=== PATIENT | male | born 1980 | race Caucasian/White ===

== ENCOUNTER 2018-02-15 01:39 | Emergency (ER) | payer MEDICAID ==
[~2018-02-15] VITALS: Ht 180.3 cm; Wt 68.2 kg
[~2018-02-15 01:39] MED LIST: AMOXICILLIN 50500 MG PO; AMOXICILLIN875 MG PO; ATIVAN 1MG T1 MG/TAB PO; CLEOCIN HC150 MG/CAP PO; DOXYCYCLINE 10100 MG PO; LAMICTAL 25MG T25 MG PO; LAMICTAL200 MG PO; LORTAB 5/500 501 TAB; LORTAB 5/500 501 TAB PO; NAPROSYN500 MG PO; NEURONTIN100 MG/CAP PO; NO HOME MEDICATIONS; NORCO 325 MG-51 TAB PO; NORCO 325 MG-7.1 TAB PO; PERCOCET 325 MG1 TA2 PO; PHENERGAN 25 TA25 MG PO; PREDNISONE20 MG PO; PROAIR HFA0.09 MG/AC IH; ZITHROMAX Z PA250 MG PO; [UNRECOGNIZED DRUG - CODE] TP
[2018-02-15 01:43] VITALS: BP 137/72; PULSE 95; TEMP 98.7
[2018-02-15] MEDS ORDERED: FOLIC ACID 11 MG/TA1 PO (02:00)
[2018-02-15] MEDS ORDERED: IBU800 M1 PO (02:01)
[2018-02-15] MEDS ORDERED: NEURONTIN300 MG/CAP PO (02:01)
[2018-02-15] MEDS ORDERED: ROBAXIN 50500 MG/TAB PO (02:02)
[2018-02-15] MEDS ORDERED: LIDOCAINE HCL100 M1 MM (02:02)
[2018-02-15] MEDS ORDERED: OTREXUP15 MG/0.4 SQ (02:03)
[2018-02-15] MEDS ORDERED: TRENTAL 400MG400 MG PO (02:04)
[2018-02-15] MEDS ORDERED: PREDNISONE 5MG5 MG PO (02:05)
[2018-02-15] MEDS ORDERED: VITAMIN D 50,1.25 MG PO (02:05)
[2018-02-15 02:18] LABS: BASO % 0.3 % (0.0-2.0); EOS # 0.2 (0.0-0.7); EOS % 3.1 % (0-4.0); GRAN # 3.8 (1.4-6.5); GRAN % 56.7 % (42.2-75.2); HEMATOCRIT 44.4 % (42.0-52.0); HEMOGLOBIN 15.1 g/dl (13.5-18.0); LYMPH # 2.2 (1.2-3.4); LYMPH % 32.5 % (20.0-51.0); MEAN CELL VOLUME 84 fl (80.0-100.0); MEAN CORPUSCULAR HEMOGLOBIN 29 pg (27.0-31.0); MEAN CORPUSCULAR HGB CONC 34 g/dl (33.0-37.0); MEAN PLATELET VOLUME 8.5 fl (7.4-10.4); MONO # 0.5 (0.1-0.6); MONO % 7.1 % (1.7-9.3); PLATELET COUNT 198 K/mm3 (130-400); RED BLOOD COUNT 5.28 M/mm3 (4.20-5.60); REDCELL DISTRIBUTION WIDTH-CV 12.1 % (11.5-14.5)
[2018-02-15 02:31] LABS: ALANINE AMINOTRANSFERASE 27 U/L (21-72); ALBUMIN 4.1 gm/dL (3.5-5.0); ALKALINE PHOSPHATASE 64 U/L (50-136); ANION GAP 10 mmol/L (7-16); AST,SGOT 18 U/L (15-37); BILIRUBIN,TOTAL 0.3 mg/dL (0.0-1.0); BLOOD UREA NITROGEN 16 mg/dL (9-20); CALCIUM 9.1 mg/dL (8.4-10.2); CARBON DIOXIDE 26 mmol/L (22-30); CHLORIDE 104 mmol/L (98-107); CREATININE, serum 0.86 mg/dL (0.66-1.25); GLUCOSE 94 mg/dL (74-106); SODIUM 140 mmol/L (137-145)
[2018-02-15 02:32] LABS: C-REACTIVE PROTEIN < 0.5 mg/dL (0.0-0.9)
[2018-02-15 02:43] LABS: ERYTHROCYTE SEDIMENTATION RATE 1 mm/hr (0-15)
== END 2018-02-15 02:51 | disposition left against medical advice (07) ==
LOC: COL.ER 01:39
PROVIDERS: Physician Assistant
DX: M79.642 Pain in left hand (principal); M79.641 Pain in right hand; M79.672 Pain in left foot; M79.671 Pain in right foot; F17.210 Nicotine dependence, cigarettes, uncomplicated

== ENCOUNTER 2018-03-14 00:10 | Emergency (ER) | payer MEDICAID ==
[~2018-03-14] VITALS: Ht 175.3 cm; Wt 68.2 kg
[~2018-03-14 00:10] MED LIST changes: +FOLIC ACID 11 MG/TA1 PO; +IBU800 M1 PO; +LIDOCAINE HCL100 M1 MM; +NEURONTIN300 MG/CAP PO; +OTREXUP15 MG/0.4 SQ; +PREDNISONE 5MG5 MG PO; +ROBAXIN 50500 MG/TAB PO; +TRENTAL 400MG400 MG PO; +VITAMIN D 50,1.25 MG PO
[2018-03-14 00:15] VITALS: BP 132/85; PULSE 90; TEMP 98.9
[2018-03-14 00:52] LABS: BASO % 0.3 % (0.0-2.0); EOS # 0.3 (0.0-0.7); EOS % 3.9 % (0-4.0); GRAN # 4.5 (1.4-6.5); GRAN % 56.7 % (42.2-75.2); HEMATOCRIT 47.2 % (42.0-52.0); HEMOGLOBIN 15.9 g/dl (13.5-18.0); LYMPH # 2.6 (1.2-3.4); MEAN CELL VOLUME 85 fl (80.0-100.0); MEAN CORPUSCULAR HEMOGLOBIN 29 pg (27.0-31.0); MEAN CORPUSCULAR HGB CONC 34 g/dl (33.0-37.0); MEAN PLATELET VOLUME 8.9 fl (7.4-10.4); MONO # 0.4 (0.1-0.6); MONO % 5.6 % (1.7-9.3); PLATELET COUNT 196 K/mm3 (130-400); RED BLOOD COUNT 5.55 M/mm3 (4.20-5.60); REDCELL DISTRIBUTION WIDTH-CV 12.9 % (11.5-14.5)
[2018-03-14 01:07] LABS: ALANINE AMINOTRANSFERASE 23 U/L (21-72); ALBUMIN 4.4 gm/dL (3.5-5.0); ALKALINE PHOSPHATASE 63 U/L (50-136); ANION GAP 13 mmol/L (7-16); AST,SGOT 14 U/L (15-37); BILIRUBIN,TOTAL 0.3 mg/dL (0.0-1.0); BLOOD UREA NITROGEN 15 mg/dL (9-20); C-REACTIVE PROTEIN < 0.5 mg/dL (0.0-0.9); CALCIUM 9.1 mg/dL (8.4-10.2); CARBON DIOXIDE 21 mmol/L (22-30); CHLORIDE 104 mmol/L (98-107); CREATININE, serum 0.83 mg/dL (0.66-1.25); GLUCOSE 103 mg/dL (74-106); MAGNESIUM 2.1 mg/dL (1.6-2.3); PHOSPHOROUS 4.1 mg/dL (2.5-4.5); POTASSIUM 3.7 mmol/L (3.4-5.0); SODIUM 138 mmol/L (137-145); TOTAL PROTEIN 7.3 gm/dL (6.4-8.2)
[2018-03-14 01:15] LABS: ERYTHROCYTE SEDIMENTATION RATE 1 mm/hr (0-15)
== END 2018-03-14 01:33 | disposition home or self-care (01) ==
LOC: COL.ER 00:10
PROVIDERS: Emergency Medicine
DX: M35.2 Behcet's disease (principal); F17.210 Nicotine dependence, cigarettes, uncomplicated; Z98.890 Other specified postprocedural states
CPT/HCPCS: J7512

== ENCOUNTER 2018-03-26 01:30 | Emergency (ER) | payer MEDICAID ==
[~2018-03-26] VITALS: Ht 182.9 cm; Wt 69.5 kg
[2018-03-26 02:35] VITALS: BP 139/79; PULSE 88; TEMP 98.8
== END 2018-03-26 02:20 | disposition home or self-care (01) ==
LOC: COL.ER 01:30
DX: G89.29 Other chronic pain (principal); M79.671 Pain in right foot; M79.672 Pain in left foot; M79.642 Pain in left hand; M79.641 Pain in right hand; F41.9 Anxiety disorder, unspecified; F17.210 Nicotine dependence, cigarettes, uncomplicated; Z98.890 Other specified postprocedural states
CPT/HCPCS: J2405

== ENCOUNTER 2018-04-02 17:28 | Emergency (ER) | payer MEDICAID ==
[~2018-04-02] VITALS: Ht 180.3 cm; Wt 69.5 kg
[2018-04-02 17:35] VITALS: TEMP 98.3
[2018-04-02] MEDS ORDERED: PERCOCET 325 MG1 TA2 PO (17:52)
[2018-04-02 18:00] VITALS: BP 132/80; PULSE 90
== END 2018-04-02 18:00 | disposition home or self-care (01) ==
LOC: COL.ER 17:28
DX: M35.2 Behcet's disease (principal); M35.00 Sjogren syndrome, unspecified; F17.210 Nicotine dependence, cigarettes, uncomplicated; Z79.1 Long term (current) use of non-steroidal anti-inflammatories (NSAID)

== ENCOUNTER 2018-04-03 00:30 | Emergency (ER) | payer MEDICAID ==
[~2018-04-03] VITALS: Ht 180.3 cm; Wt 68.2 kg
[2018-04-03 00:33] VITALS: BP 134/86; PULSE 83; TEMP 98.5
[2018-04-04] MEDS ORDERED: PREDNISONE10 MG PO (13:44)
[2018-04-04] MEDS ORDERED: POLYMYXIN B/TRIMETH OS (14:00)
== END 2018-04-03 01:05 | disposition home or self-care (01) ==
LOC: COL.ER 00:30
DX: S69.91XA Unspecified injury of right wrist, hand and finger(s), initial encounter (principal); S60.221A Contusion of right hand, initial encounter; F41.9 Anxiety disorder, unspecified; M35.2 Behcet's disease; M25.519 Pain in unspecified shoulder; G89.29 Other chronic pain; F17.210 Nicotine dependence, cigarettes, uncomplicated; Z79.891 Long term (current) use of opiate analgesic; Z79.1 Long term (current) use of non-steroidal anti-inflammatories (NSAID); W22.8XXA Striking against or struck by other objects, initial encounter

== ENCOUNTER 2018-04-04 13:21 | Emergency (ER) | payer SELFPAY ==
[~2018-04-04] VITALS: Ht 180.3 cm; Wt 69.5 kg
[2018-04-04 13:23] VITALS: BP 134/78; PULSE 87; TEMP 98.8
[2018-04-04] MEDS ORDERED: PREDNISONE10 MG PO (13:44)
[2018-04-04] MEDS ORDERED: POLYMYXIN B/TRIMETH OS (14:00)
== END 2018-04-04 14:23 | disposition home or self-care (01) ==
LOC: COL.ER 13:21
DX: S05.02XA Injury of conjunctiva and corneal abrasion without foreign body, left eye, initial encounter (principal); H57.12 Ocular pain, left eye; F41.9 Anxiety disorder, unspecified; Z98.890 Other specified postprocedural states

== ENCOUNTER 2018-04-17 11:54 | Emergency (ER) | payer MEDICAID ==
[~2018-04-17] VITALS: Ht 180.3 cm; Wt 69.5 kg
[~2018-04-17 11:54] MED LIST changes: +POLYMYXIN B/TRIMETH OS; +PREDNISONE10 MG PO
[2018-04-17] MEDS ORDERED: NEURONTIN300 MG/CAP PO (12:10)
[2018-04-17] MEDS ORDERED: PREDNISONE 5MG5 MG PO (12:11)
[2018-04-17 13:53] VITALS: BP 140/78; PULSE 88; TEMP 98.5
== END 2018-04-17 14:02 | disposition home or self-care (01) ==
LOC: COL.ER 11:54
DX: R05 Cough (principal); F41.9 Anxiety disorder, unspecified; F17.210 Nicotine dependence, cigarettes, uncomplicated; M06.9 Rheumatoid arthritis, unspecified

== ENCOUNTER 2018-04-26 00:45 | Emergency (ER) | payer OTHER ==
[~2018-04-26] VITALS: Ht 180.3 cm; Wt 68.2 kg
[2018-04-26 00:50] VITALS: BP 128/81; TEMP 97.4
[2018-04-26 02:02] VITALS: PULSE 84
== END 2018-04-26 02:02 | disposition home or self-care (01) ==
LOC: COL.ER 00:45
DX: M19.042 Primary osteoarthritis, left hand (principal); M19.041 Primary osteoarthritis, right hand; M35.2 Behcet's disease; M35.00 Sjogren syndrome, unspecified; Z79.52 Long term (current) use of systemic steroids
CPT/HCPCS: J1885; J7512

== ENCOUNTER 2018-05-11 20:37 | Emergency (ER) | payer OTHER ==
[~2018-05-11] VITALS: Ht 180.3 cm; Wt 69.5 kg
[2018-05-11 20:45] VITALS: BP 147/73; PULSE 95; TEMP 97.4
== END 2018-05-11 21:38 | disposition left against medical advice (07) ==
LOC: COL.ER 20:37
DX: R06.00 Dyspnea, unspecified (principal)

== ENCOUNTER 2018-06-20 20:27 | Emergency (ER) | payer MEDICARE, MEDICAID ==
[~2018-06-20] VITALS: Ht 180.3 cm; Wt 68.2 kg
[2018-06-20 20:36] VITALS: BP 114/68; TEMP 98.1
[2018-06-20] MEDS ORDERED: CEPHALEXIN500 M1 PO (21:14)
[2018-06-20] MEDS ORDERED: DOXYCYCLINE 10100 MG PO (21:14)
[2018-06-20] MEDS ORDERED: PREDNISONE10 MG PO (21:14)
[2018-06-20 21:28] VITALS: PULSE 95
== END 2018-06-20 21:29 | disposition home or self-care (01) ==
LOC: COL.ER 20:27
DX: L03.116 Cellulitis of left lower limb (principal); M35.2 Behcet's disease; F17.210 Nicotine dependence, cigarettes, uncomplicated

== ENCOUNTER 2018-07-20 00:38 | Emergency (ER) | payer MEDICARE, MEDICAID ==
[~2018-07-20] VITALS: Ht 182.9 cm; Wt 71.8 kg
[~2018-07-20 00:38] MED LIST changes: +CEPHALEXIN500 M1 PO
[2018-07-20] MEDS ORDERED: METHOTREXA2.5 MG/TAB PO (01:58)
[2018-07-20] MEDS ORDERED: PREDNISONE20 MG PO (01:58)
[2018-07-20] MEDS ORDERED: AMOXICILLIN875 MG PO (01:58)
[2018-07-20] MEDS ORDERED: DAZIDOX10 MG PO (01:59)
[2018-07-20 02:25] VITALS: BP 105/58; PULSE 93; TEMP 97.5
== END 2018-07-20 02:27 | disposition home or self-care (01) ==
LOC: COL.ER 00:38
DX: J02.9 Acute pharyngitis, unspecified (principal); Z79.891 Long term (current) use of opiate analgesic
CPT/HCPCS: A4216; J0696; J1885; J2405; J3010; J7040

== ENCOUNTER → 2018-08-02 | Outpatient (CLI) | payer MEDICARE, MEDICAID ==
[~2018-08-02] MED LIST changes: +DAZIDOX10 MG PO; +METHOTREXA2.5 MG/TAB PO
== END ==
LOC: COL.RAD 10:57
DX: I77.6 Arteritis, unspecified (principal)
CPT/HCPCS: Q9967

== ENCOUNTER 2018-08-09 07:40 | Outpatient (CLI) | payer MEDICARE, MEDICAID ==
[~2018-08-09] VITALS: Ht 183 cm; Wt 70.4 kg
[2018-08-09] MEDS ORDERED: METHOTREXATE50/2 SQ (08:02)
[2018-08-09] MEDS ORDERED: ASPIRIN 81M81 MG/TA2 PO (08:03)
[2018-08-09] MEDS ORDERED: OXY IR5 MG PO (08:05)
[2018-08-09 08:20] VITALS: BP 119/73; PULSE 87; TEMP 97.2
[2018-08-09 10:35] VITALS: BP 107/81; PULSE 81
== END 2018-08-09 10:45 | disposition home or self-care (01) ==
LOC: COL.CAR 07:40
DX: R55 Syncope and collapse (principal); I47.1 Supraventricular tachycardia; F17.210 Nicotine dependence, cigarettes, uncomplicated; Z79.52 Long term (current) use of systemic steroids; Z80.9 Family history of malignant neoplasm, unspecified; Z82.3 Family history of stroke

== ENCOUNTER 2018-09-15 11:45 | Emergency (ER) | payer MEDICARE, MEDICAID ==
[~2018-09-15] VITALS: Ht 182.9 cm; Wt 69.5 kg
[~2018-09-15 11:45] MED LIST changes: +ASPIRIN 81M81 MG/TA2 PO; +METHOTREXATE50/2 SQ; +OXY IR5 MG PO
[2018-09-15 11:49] VITALS: BP 129/72; PULSE 85; TEMP 97.8
== END 2018-09-15 12:39 | disposition home or self-care (01) ==
LOC: COL.ER 11:45
DX: S60.211A Contusion of right wrist, initial encounter (principal); F41.9 Anxiety disorder, unspecified; F17.210 Nicotine dependence, cigarettes, uncomplicated; Z79.82 Long term (current) use of aspirin; W22.8XXA Striking against or struck by other objects, initial encounter; Y92.009 Unspecified place in unspecified non-institutional (private) residence as the place of occurrence of the external cause

== ENCOUNTER 2018-09-30 18:24 | Emergency (ER) | payer MEDICARE, MEDICAID ==
[~2018-09-30] VITALS: Ht 182.9 cm; Wt 68.2 kg
[2018-09-30 18:29] VITALS: BP 118/71; TEMP 97.3
[2018-09-30] MEDS ORDERED: ZITHROMAX 250M250 MG PO (19:35)
[2018-09-30 19:45] VITALS: PULSE 91
== END 2018-09-30 19:46 | disposition home or self-care (01) ==
LOC: COL.ER 18:24
DX: J20.9 Acute bronchitis, unspecified (principal); J01.90 Acute sinusitis, unspecified; F17.210 Nicotine dependence, cigarettes, uncomplicated; Z79.82 Long term (current) use of aspirin

== ENCOUNTER 2018-10-18 02:40 | Emergency (ER) | payer MEDICARE, MEDICAID ==
[~2018-10-18] VITALS: Ht 182.9 cm; Wt 68.2 kg
[~2018-10-18 02:40] MED LIST changes: +ZITHROMAX 250M250 MG PO
[2018-10-18 02:47] VITALS: BP 110/76; TEMP 96.4
[2018-10-18 04:28] LABS: BASO % 0.2 % (0.0-2.0); EOS # 0.1 (0.0-0.7); EOS % 1.4 % (0-4.0); GRAN # 6.5 (1.4-6.5); GRAN % 81.2 % (42.2-75.2); HEMOGLOBIN 16.2 g/dl (13.5-18.0); LYMPH # 1.1 (1.2-3.4); LYMPH % 13.9 % (20.0-51.0); MEAN CELL VOLUME 84 fl (80.0-100.0); MEAN CORPUSCULAR HEMOGLOBIN 28 pg (27.0-31.0); MEAN CORPUSCULAR HGB CONC 34 g/dl (33.0-37.0); MEAN PLATELET VOLUME 9.2 fl (7.4-10.4); MONO # 0.3 (0.1-0.6); MONO % 3.1 % (1.7-9.3); PLATELET COUNT 201 K/mm3 (130-400); RED BLOOD COUNT 5.74 M/mm3 (4.20-5.60); REDCELL DISTRIBUTION WIDTH-CV 12.9 % (11.5-14.5)
[2018-10-18 04:43] LABS: ALANINE AMINOTRANSFERASE 14 U/L (21-72); ALBUMIN 4.5 gm/dL (3.5-5.0); ALKALINE PHOSPHATASE 66 U/L (50-136); ANION GAP 11 mmol/L (7-16); AST,SGOT 17 U/L (15-37); BILIRUBIN,TOTAL 0.6 mg/dL (0.0-1.0); BLOOD UREA NITROGEN 10 mg/dL (9-20); CALCIUM 9.6 mg/dL (8.4-10.2); CARBON DIOXIDE 22 mmol/L (22-30); CHLORIDE 102 mmol/L (98-107); CREATINE KINASE 76 U/L (55-170); CREATININE, serum 0.81 mg/dL (0.66-1.25); GLUCOSE 114 mg/dL (74-106); POTASSIUM 3.9 mmol/L (3.4-5.0); SODIUM 135 mmol/L (137-145); TOTAL PROTEIN 7.5 gm/dL (6.4-8.2)
[2018-10-18 04:51] LABS: C-REACTIVE PROTEIN < 0.5 mg/dL (0.0-0.9)
[2018-10-18 04:53] LABS: ERYTHROCYTE SEDIMENTATION RATE 1 mm/hr (0-15)
[2018-10-18] MEDS ORDERED: PREDNISONE20 MG PO (05:50)
[2018-10-18 06:00] VITALS: PULSE 111
== END 2018-10-18 06:00 | disposition home or self-care (01) ==
LOC: COL.ER 02:40
PROVIDERS: Emergency Medicine
DX: M13.0 Polyarthritis, unspecified (principal); F41.9 Anxiety disorder, unspecified; M35.2 Behcet's disease; F17.210 Nicotine dependence, cigarettes, uncomplicated; Z79.82 Long term (current) use of aspirin; Z79.899 Other long term (current) drug therapy
CPT/HCPCS: J7512

== ENCOUNTER 2018-11-11 23:38 | Emergency (ER) | payer MEDICARE, MEDICAID ==
[~2018-11-11] VITALS: Ht 182.9 cm; Wt 68.2 kg
[2018-11-11 23:42] VITALS: BP 123/66; PULSE 95; TEMP 98.1
[2018-11-12] MEDS ORDERED: MAGIC MOUTHWASH1 M1 PO (01:41)
[2018-11-12] MEDS ORDERED: KENALOG DENTAL P5 GM DT (01:41)
== END 2018-11-12 02:07 | disposition left against medical advice (07) ==
LOC: COL.ER 23:38
DX: M35.2 Behcet's disease (principal); K13.79 Other lesions of oral mucosa; F17.210 Nicotine dependence, cigarettes, uncomplicated

== ENCOUNTER 2018-11-18 20:58 | Emergency (ER) | payer MEDICARE, MEDICAID ==
[~2018-11-18] VITALS: Ht 182.9 cm; Wt 67.3 kg
[~2018-11-18 20:58] MED LIST changes: +KENALOG DENTAL P5 GM DT; +MAGIC MOUTHWASH1 M1 PO
[2018-11-18 21:02] VITALS: TEMP 98.5
[2018-11-18 23:20] VITALS: BP 130/82; PULSE 108
== END 2018-11-18 23:23 | disposition home or self-care (01) ==
LOC: COL.ER 20:58
DX: S80.02XA Contusion of left knee, initial encounter (principal); F41.9 Anxiety disorder, unspecified; F17.210 Nicotine dependence, cigarettes, uncomplicated; Z79.82 Long term (current) use of aspirin; W18.39XA Other fall on same level, initial encounter; Y92.009 Unspecified place in unspecified non-institutional (private) residence as the place of occurrence of the external cause; X50.0XXA Overexertion from strenuous movement or load, initial encounter

== ENCOUNTER 2018-12-05 21:53 | Emergency (ER) | payer MEDICARE, MEDICAID ==
[~2018-12-05] VITALS: Ht 182.9 cm; Wt 65.9 kg
[2018-12-05 22:09] VITALS: BP 135/81; PULSE 109; TEMP 97.8
== END 2018-12-06 00:50 | disposition left against medical advice (07) ==
LOC: COL.ER 21:53
DX: R00.2 Palpitations (principal)

== ENCOUNTER 2018-12-18 06:30 | Emergency (ER) | payer MEDICARE, MEDICAID ==
[~2018-12-18] VITALS: Ht 177.8 cm; Wt 72.7 kg
[2018-12-18 06:40] VITALS: TEMP 97.9
[2018-12-18 07:36] LABS: BASO % 0.3 % (0.0-2.0); EOS # 0.3 (0.0-0.7); EOS % 3.3 % (0-4.0); GRAN # 4.4 (1.4-6.5); GRAN % 58.3 % (42.2-75.2); HEMATOCRIT 49.9 % (42.0-52.0); HEMOGLOBIN 17.4 g/dl (13.5-18.0); LYMPH # 2.4 (1.2-3.4); LYMPH % 32.4 % (20.0-51.0); MEAN CELL VOLUME 84 fl (80.0-100.0); MEAN CORPUSCULAR HEMOGLOBIN 29 pg (27.0-31.0); MEAN CORPUSCULAR HGB CONC 35 g/dl (33.0-37.0); MONO # 0.4 (0.1-0.6); MONO % 5.6 % (1.7-9.3); PLATELET COUNT 197 K/mm3 (130-400); RED BLOOD COUNT 5.96 M/mm3 (4.20-5.60); REDCELL DISTRIBUTION WIDTH-CV 12.3 % (11.5-14.5)
[2018-12-18 07:49] LABS: ALANINE AMINOTRANSFERASE 7 U/L (21-72); ALBUMIN 4.7 gm/dL (3.5-5.0); ALKALINE PHOSPHATASE 66 U/L (50-136); ANION GAP 14 mmol/L (7-16); AST,SGOT 20 U/L (15-37); BILIRUBIN,TOTAL 0.7 mg/dL (0.0-1.0); BLOOD UREA NITROGEN 11 mg/dL (9-20); CALCIUM 9.8 mg/dL (8.4-10.2); CARBON DIOXIDE 22 mmol/L (22-30); CHLORIDE 107 mmol/L (98-107); CREATININE, serum 0.78 (0.66-1.25); GLUCOSE 134 mg/dL (74-106); POTASSIUM 3.7 mmol/L (3.4-5.0); SODIUM 143 mmol/L (137-145); TOTAL PROTEIN 7.8 gm/dL (6.4-8.2)
[2018-12-18 08:23] LABS: TROPONIN-I < 0.012 ng/mL (0.000-0.035)
[2018-12-18 08:49] VITALS: BP 129/84; PULSE 84
== END 2018-12-18 08:49 | disposition home or self-care (01) ==
LOC: COL.ER 06:30
PROVIDERS: Emergency Medicine
DX: R00.2 Palpitations (principal); F17.210 Nicotine dependence, cigarettes, uncomplicated; Z79.82 Long term (current) use of aspirin
CPT/HCPCS: J2060; J2405; J7030

== ENCOUNTER 2019-01-18 15:46 | Emergency (ER) | payer MEDICARE, MEDICAID | END 2019-01-18 16:46 | disposition left against medical advice (07) | LOC: COL.ER 15:46 | DX: Z72.9 Problem related to lifestyle, unspecified (principal) ==

== ENCOUNTER 2019-02-11 23:10 | Emergency (ER) | payer MEDICARE, MEDICAID ==
[~2019-02-11] VITALS: Ht 182.9 cm; Wt 63.6 kg
[2019-02-11 23:13] VITALS: TEMP 98
[2019-02-12] MEDS ORDERED: ROXICODONE 55 MG/TAB PO (00:31)
[2019-02-12] MEDS ORDERED: REMICADE V100 MG/VIA IV (00:32)
[2019-02-12] MEDS ORDERED: ATROPINE 2 ML2 ML OD (02:06)
[2019-02-12] MEDS ORDERED: NORCO 325 MG-51 TAB PO (02:06)
[2019-02-12 02:24] VITALS: BP 105/76; PULSE 75
== END 2019-02-12 02:24 | disposition home or self-care (01) ==
LOC: COL.ER 23:10
DX: H57.11 Ocular pain, right eye (principal)

== ENCOUNTER 2019-02-20 06:48 | Emergency (ER) | payer MEDICARE, MEDICAID ==
[~2019-02-20] VITALS: Ht 182.9 cm; Wt 66.4 kg
[~2019-02-20 06:48] MED LIST changes: +ATROPINE 2 ML2 ML OD; +REMICADE V100 MG/VIA IV; +ROXICODONE 55 MG/TAB PO
[2019-02-20 07:02] VITALS: TEMP 98.7
[2019-02-20] MEDS ORDERED: PROTONIX 40MG T40 MG PO (08:58)
[2019-02-20] MEDS ORDERED: CARAFATE 1GM1 G PO (09:02)
[2019-02-20 10:43] VITALS: BP 111/71; PULSE 69
== END 2019-02-20 10:38 | disposition home or self-care (01) ==
LOC: COL.ER 06:48
DX: K21.0 Gastro-esophageal reflux disease with esophagitis (principal); M35.2 Behcet's disease; F17.210 Nicotine dependence, cigarettes, uncomplicated; Z79.891 Long term (current) use of opiate analgesic

== ENCOUNTER 2019-04-05 17:35 | Emergency (ER) | payer MEDICARE, MEDICAID ==
[~2019-04-05] VITALS: Ht 182.9 cm; Wt 63.6 kg
[~2019-04-05 17:35] MED LIST changes: +CARAFATE 1GM1 G PO; +PROTONIX 40MG T40 MG PO
[2019-04-05 18:02] VITALS: BP 145/94; TEMP 98.7
[2019-04-05] MEDS ORDERED: AMOXICILLIN 50500 MG PO (21:36)
[2019-04-05 21:51] VITALS: PULSE 80
== END 2019-04-05 21:50 | disposition home or self-care (01) ==
LOC: COL.ER 17:35
DX: K02.9 Dental caries, unspecified (principal); F17.210 Nicotine dependence, cigarettes, uncomplicated

== ENCOUNTER 2019-04-12 17:41 | Emergency (ER) | payer MEDICARE, MEDICAID ==
[~2019-04-12] VITALS: Ht 182.9 cm; Wt 63.6 kg
[2019-04-12 18:00] VITALS: BP 104/65; TEMP 98.4
[2019-04-12 19:56] LABS: BASO % 0.3 % (0.0-2.0); EOS # 0.3 (0.0-0.7); EOS % 4.2 % (0-4.0); GRAN # 4.9 (1.4-6.5); GRAN % 65.5 % (42.2-75.2); HEMATOCRIT 44.9 % (42.0-52.0); HEMOGLOBIN 15.1 g/dl (13.5-18.0); LYMPH # 1.6 (1.2-3.4); LYMPH % 22.1 % (20.0-51.0); MEAN CELL VOLUME 88 fl (80.0-100.0); MEAN CORPUSCULAR HEMOGLOBIN 30 pg (27.0-31.0); MEAN CORPUSCULAR HGB CONC 34 g/dl (33.0-37.0); MONO # 0.6 (0.1-0.6); MONO % 7.8 % (1.7-9.3); PLATELET COUNT 180 K/mm3 (130-400); RED BLOOD COUNT 5.12 M/mm3 (4.20-5.60); REDCELL DISTRIBUTION WIDTH-CV 13.2 % (11.5-14.5)
[2019-04-12 20:10] LABS: ALBUMIN 4.6 gm/dL (3.5-5.0); BILIRUBIN,TOTAL 0.5 mg/dL (0.0-1.0); C-REACTIVE PROTEIN 1.2 mg/dL (0.0-0.9); CALCIUM 9.1 mg/dL (8.4-10.2); CREATININE, serum 0.84 (0.66-1.25); POTASSIUM 3.6 mmol/L (3.4-5.0); TOTAL PROTEIN 7.3 gm/dL (6.4-8.2)
[2019-04-12 20:18] LABS: ERYTHROCYTE SEDIMENTATION RATE 2 mm/hr (0-15)
[2019-04-12] MEDS ORDERED: PREDNISONE20 MG PO (20:54)
[2019-04-12 21:02] VITALS: PULSE 86
== END 2019-04-12 21:02 | disposition home or self-care (01) ==
LOC: COL.ER 17:41
PROVIDERS: Physician Assistant
DX: M35.2 Behcet's disease (principal); M25.542 Pain in joints of left hand
CPT/HCPCS: J7512

== ENCOUNTER 2019-05-01 20:42 | Emergency (ER) | payer MEDICARE, MEDICAID ==
[~2019-05-01] VITALS: Ht 182.9 cm; Wt 59.1 kg
[2019-05-01 20:51] VITALS: BP 125/77; PULSE 74; TEMP 97.6
== END 2019-05-01 21:06 | disposition left against medical advice (07) ==
LOC: COL.ER 20:42
DX: R42 Dizziness and giddiness (principal); R06.00 Dyspnea, unspecified

== ENCOUNTER 2019-05-30 20:14 | Emergency (ER) | payer MEDICARE, MEDICAID ==
[~2019-05-30] VITALS: Ht 182.9 cm; Wt 63.6 kg
[2019-05-30 20:16] VITALS: BP 131/82; PULSE 121; TEMP 98.3
[2019-05-30 20:46] LABS: BASO % 0.2 % (0.0-2.0); EOS # 0.1 (0.0-0.7); EOS % 1.2 % (0-4.0); GRAN # 5.5 (1.4-6.5); GRAN % 67.8 % (42.2-75.2); HEMATOCRIT 49.8 % (42.0-52.0); LYMPH # 2.1 (1.2-3.4); LYMPH % 25.3 % (20.0-51.0); MEAN CELL VOLUME 86 fl (80.0-100.0); MEAN CORPUSCULAR HEMOGLOBIN 29 pg (27.0-31.0); MEAN CORPUSCULAR HGB CONC 34 g/dl (33.0-37.0); MONO # 0.4 (0.1-0.6); PLATELET COUNT 207 K/mm3 (130-400); RED BLOOD COUNT 5.81 M/mm3 (4.20-5.60); REDCELL DISTRIBUTION WIDTH-CV 12.6 % (11.5-14.5)
[2019-05-30 21:00] LABS: ALANINE AMINOTRANSFERASE 16 U/L (21-72); ALBUMIN 5.2 gm/dL (3.5-5.0); ALKALINE PHOSPHATASE 60 U/L (50-136); ANION GAP 13 mmol/L (7-16); AST,SGOT 20 U/L (15-37); BILIRUBIN,TOTAL 0.9 mg/dL (0.0-1.0); BLOOD UREA NITROGEN 8 mg/dL (9-20); CALCIUM 9.9 mg/dL (8.4-10.2); CARBON DIOXIDE 26 mmol/L (22-30); CHLORIDE 100 mmol/L (98-107); CREATININE, serum 0.82 (0.66-1.25); GLUCOSE 101 mg/dL (74-106); POTASSIUM 3.3 mmol/L (3.4-5.0); SODIUM 139 mmol/L (137-145); TOTAL PROTEIN 8.4 gm/dL (6.4-8.2)
[2019-05-30 21:10] LABS: C-REACTIVE PROTEIN < 0.5 mg/dL (0.0-0.9); TROPONIN-I < 0.012 ng/mL (0.000-0.035)
[2019-05-30] MEDS ORDERED: K-DUR20 MEQ PO (21:32)
[2019-05-30] MEDS ORDERED: TOPROL XL 25MG25 MG PO (21:32)
[2019-05-30] MEDS ORDERED: PROTONIX 40MG T40 MG PO (21:32)
== END 2019-05-30 21:55 | disposition home or self-care (01) ==
LOC: COL.ER 20:14
PROVIDERS: Emergency Medicine
DX: R00.2 Palpitations (principal); K21.9 Gastro-esophageal reflux disease without esophagitis

== ENCOUNTER 2019-06-02 01:28 | Emergency (ER) | payer MEDICARE, MEDICAID ==
[~2019-06-02] VITALS: Ht 182.9 cm; Wt 63.6 kg
[~2019-06-02 01:28] MED LIST changes: +K-DUR20 MEQ PO; +TOPROL XL 25MG25 MG PO
[2019-06-02 01:32] VITALS: BP 137/81; TEMP 98.1
[2019-06-02] MEDS ORDERED: PREDNISONE20 MG PO (01:59)
[2019-06-02 02:20] VITALS: PULSE 94
== END 2019-06-02 02:20 | disposition home or self-care (01) ==
LOC: COL.ER 01:28
DX: M79.89 Other specified soft tissue disorders (principal); F17.210 Nicotine dependence, cigarettes, uncomplicated; Z98.890 Other specified postprocedural states

== ENCOUNTER 2019-06-28 20:20 | Emergency (ER) | payer MEDICARE, MEDICAID ==
[~2019-06-28] VITALS: Ht 182.9 cm; Wt 63.6 kg
[2019-06-28 20:30] VITALS: TEMP 98.6
[2019-06-28 21:50] LABS: BASO % 0.2 % (0.0-2.0); EOS # 0.4 (0.0-0.7); EOS % 4.1 % (0-4.0); GRAN # 5.5 (1.4-6.5); GRAN % 58.8 % (42.2-75.2); HEMATOCRIT 50.1 % (42.0-52.0); HEMOGLOBIN 16.8 g/dl (13.5-18.0); LYMPH # 2.8 (1.2-3.4); LYMPH % 29.4 % (20.0-51.0); MEAN CELL VOLUME 86 fl (80.0-100.0); MEAN CORPUSCULAR HEMOGLOBIN 29 pg (27.0-31.0); MEAN CORPUSCULAR HGB CONC 34 g/dl (33.0-37.0); MEAN PLATELET VOLUME 9.1 fl (7.4-10.4); MONO # 0.7 (0.1-0.6); MONO % 6.9 % (1.7-9.3); PLATELET COUNT 231 K/mm3 (130-400); REDCELL DISTRIBUTION WIDTH-CV 12.5 % (11.5-14.5)
[2019-06-28 21:59] LABS: ALANINE AMINOTRANSFERASE 24 U/L (21-72); ALBUMIN 4.7 gm/dL (3.5-5.0); ALKALINE PHOSPHATASE 62 U/L (50-136); ANION GAP 9 mmol/L (7-16); AST,SGOT 21 U/L (15-37); BILIRUBIN,TOTAL 0.3 mg/dL (0.0-1.0); BLOOD UREA NITROGEN 11 mg/dL (9-20); CALCIUM 9.5 mg/dL (8.4-10.2); CARBON DIOXIDE 25 mmol/L (22-30); CHLORIDE 107 mmol/L (98-107); CREATININE, serum 0.91 (0.66-1.25); GLUCOSE 90 mg/dL (74-106); POTASSIUM 4.4 mmol/L (3.4-5.0); SODIUM 141 mmol/L (137-145); TOTAL PROTEIN 7.7 gm/dL (6.4-8.2)
[2019-06-28 22:09] LABS: C-REACTIVE PROTEIN < 0.5 mg/dL (0.0-0.9)
[2019-06-28 22:40] LABS: ERYTHROCYTE SEDIMENTATION RATE 1 mm/hr (0-15)
[2019-06-28] MEDS ORDERED: PREDNISONE10 MG PO (22:47)
[2019-06-28 22:55] VITALS: BP 108/67; PULSE 85
== END 2019-06-28 23:00 | disposition home or self-care (01) ==
LOC: COL.ER 20:20
PROVIDERS: Emergency Medicine
DX: M35.2 Behcet's disease (principal)
CPT/HCPCS: J2405; J3010; J7030; J7512

== ENCOUNTER 2019-08-25 21:25 | Emergency (ER) | payer MEDICARE, MEDICAID ==
[~2019-08-25] VITALS: Ht 180.3 cm; Wt 63.6 kg
[2019-08-25 21:29] VITALS: BP 138/84; TEMP 98.5
[2019-08-25 22:05] VITALS: PULSE 98
== END 2019-08-25 22:05 | disposition home or self-care (01) ==
LOC: COL.ER 21:25
DX: Z71.1 Person with feared health complaint in whom no diagnosis is made (principal); F17.210 Nicotine dependence, cigarettes, uncomplicated

== ENCOUNTER 2019-08-29 02:47 | Emergency (ER) | payer MEDICARE, MEDICAID ==
[~2019-08-29] VITALS: Ht 182.9 cm; Wt 63.6 kg
[2019-08-29 02:53] VITALS: TEMP 98.2
[2019-08-29 03:14] LABS: HEMATOCRIT 44.5 % (42.0-52.0); HEMOGLOBIN 15.1 g/dl (13.5-18.0); MEAN CELL VOLUME 87 fl (80.0-100.0); MEAN CORPUSCULAR HEMOGLOBIN 30 pg (27.0-31.0); MEAN CORPUSCULAR HGB CONC 34 g/dl (33.0-37.0); MEAN PLATELET VOLUME 9.2 fl (7.4-10.4); PLATELET COUNT 169 K/mm3 (130-400); RED BLOOD COUNT 5.12 M/mm3 (4.20-5.60)
[2019-08-29 03:19] VITALS: BP 118/77
[2019-08-29 03:26] LABS: BASO % 0.3 % (0.0-2.0); EOS # 0.3 (0.0-0.7); EOS % 2.9 % (0-4.0); GRAN # 7.4 (1.4-6.5); GRAN % 70.4 % (42.2-75.2); LYMPH # 2.2 (1.2-3.4); LYMPH % 20.8 % (20.0-51.0); MONO # 0.6 (0.1-0.6); MONO % 5.2 % (1.7-9.3)
[2019-08-29 03:29] LABS: ANION GAP 9 mmol/L (7-16); BLOOD UREA NITROGEN 13 mg/dL (9-20); C-REACTIVE PROTEIN < 0.5 mg/dL (0.0-0.9); CALCIUM 9.2 mg/dL (8.4-10.2); CARBON DIOXIDE 27 mmol/L (22-30); CHLORIDE 103 mmol/L (98-107); CREATININE, serum 1.02 (0.66-1.25); GLUCOSE 81 mg/dL (74-106); POTASSIUM 3.6 mmol/L (3.4-5.0); SODIUM 139 mmol/L (137-145)
[2019-08-29] MEDS ORDERED: CEPHALEXIN500 M1 PO (04:17)
[2019-08-29 04:25] VITALS: PULSE 85
== END 2019-08-29 04:26 | disposition home or self-care (01) ==
LOC: COL.ER 02:47
PROVIDERS: Emergency Medicine
DX: L03.115 Cellulitis of right lower limb (principal)
CPT/HCPCS: J1885; J2930; J3010; J7040

== ENCOUNTER 2019-08-31 02:13 | Emergency (ER) | payer MEDICARE, MEDICAID ==
[~2019-08-31] VITALS: Ht 182.9 cm; Wt 63.6 kg
[2019-08-31 02:20] VITALS: BP 133/93; TEMP 97.4
[2019-08-31] MEDS ORDERED: LOPRESSOR 225 MG/TAB PO (02:23)
[2019-08-31 03:03] VITALS: PULSE 104
== END 2019-08-31 03:03 | disposition home or self-care (01) ==
LOC: COL.ER 02:13
DX: L03.115 Cellulitis of right lower limb (principal); F17.210 Nicotine dependence, cigarettes, uncomplicated

== ENCOUNTER 2019-08-31 05:53 | Emergency (ER) | payer MEDICARE, MEDICAID ==
[~2019-08-31] VITALS: Ht 182.9 cm; Wt 63.6 kg
[~2019-08-31 05:53] MED LIST changes: +LOPRESSOR 225 MG/TAB PO
[2019-08-31 06:02] VITALS: TEMP 98
[2019-08-31 06:48] LABS: ALBUMIN 4.4 gm/dL (3.5-5.0); BASO % 0.2 % (0.0-2.0); BILIRUBIN,TOTAL 0.4 mg/dL (0.0-1.0); CALCIUM 9.3 mg/dL (8.4-10.2); EOS # 0.2 (0.0-0.7); EOS % 1.9 % (0-4.0); GRAN # 9.2 (1.4-6.5); GRAN % 72.2 % (42.2-75.2); HEMOGLOBIN 14.7 g/dl (13.5-18.0); LYMPH # 2.4 (1.2-3.4); LYMPH % 18.8 % (20.0-51.0); MEAN CELL VOLUME 87 fl (80.0-100.0); MEAN CORPUSCULAR HEMOGLOBIN 29 pg (27.0-31.0); MEAN CORPUSCULAR HGB CONC 33 g/dl (33.0-37.0); MEAN PLATELET VOLUME 9.2 fl (7.4-10.4); MONO # 0.8 (0.1-0.6); MONO % 6.4 % (1.7-9.3); PLATELET COUNT 169 K/mm3 (130-400); POTASSIUM 3.4 mmol/L (3.4-5.0); RED BLOOD COUNT 5.04 M/mm3 (4.20-5.60); REDCELL DISTRIBUTION WIDTH-CV 12.3 % (11.5-14.5); TOTAL PROTEIN 7.1 gm/dL (6.4-8.2)
[2019-08-31 07:31] LABS: C-REACTIVE PROTEIN 0.8 mg/dL (0.0-0.9)
[2019-08-31 07:40] LABS: TROPONIN-I < 0.012 ng/mL (0.000-0.035)
[2019-08-31 10:39] LABS: TRICYCLIC ANTIDEPRESS URINE NEGATIVE
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
[2019-08-31 16:32] VITALS: BP 102/75; PULSE 80
== END 2019-08-31 16:35 | disposition home or self-care (01) ==
LOC: COL.ER 05:53
PROVIDERS: Emergency Medicine
DX: R55 Syncope and collapse (principal); F17.210 Nicotine dependence, cigarettes, uncomplicated
CPT/HCPCS: J0690; J2060; J7030

== ENCOUNTER 2019-09-22 08:44 | Emergency (ER) | payer MEDICARE, MEDICAID ==
[~2019-09-22] VITALS: Ht 182.9 cm; Wt 63.6 kg
[2019-09-22] MEDS ORDERED: CLEOCIN HC150 MG/CAP PO (09:26)
[2019-09-22] MEDS ORDERED: DILAUDID 2MG TAB2 MG PO (09:26)
[2019-09-22 09:57] VITALS: BP 125/70; PULSE 95; TEMP 98
== END 2019-09-22 09:52 | disposition home or self-care (01) ==
LOC: COL.ER 08:44
DX: L03.116 Cellulitis of left lower limb (principal); M35.2 Behcet's disease
CPT/HCPCS: J1170; J1885

== ENCOUNTER 2019-10-15 17:38 | Emergency (ER) | payer MEDICARE, MEDICAID ==
[~2019-10-15] VITALS: Ht 180.3 cm; Wt 68.2 kg
[~2019-10-15 17:38] MED LIST changes: +DILAUDID 2MG TAB2 MG PO
[2019-10-15 17:51] VITALS: TEMP 98.1
[2019-10-15] MEDS ORDERED: METHOTREXA2.5 MG/TAB PO (18:11)
[2019-10-15 18:52] VITALS: BP 125/92; PULSE 99
[2019-10-15] MEDS ORDERED: PHENERGAN 25 TA25 MG PO (18:59)
== END 2019-10-15 19:03 | disposition home or self-care (01) ==
LOC: COL.ER 17:38
DX: T45.1X5A Adverse effect of antineoplastic and immunosuppressive drugs, initial encounter (principal); R11.2 Nausea with vomiting, unspecified; G89.29 Other chronic pain; M79.605 Pain in left leg; M79.604 Pain in right leg
CPT/HCPCS: J2550

== ENCOUNTER 2019-11-11 19:52 | Emergency (ER) | payer MEDICARE, MEDICAID ==
[~2019-11-11] VITALS: Ht 180.3 cm; Wt 52.3 kg
[2019-11-11 20:01] VITALS: BP 130/70; PULSE 94; TEMP 98.7
[2019-11-11] MEDS ORDERED: PREDNISONE20 MG PO (20:26)
== END 2019-11-11 20:29 | disposition home or self-care (01) ==
LOC: COL.ER 19:52
DX: M35.2 Behcet's disease (principal)
CPT/HCPCS: J7512

== ENCOUNTER 2019-12-25 18:18 | Emergency (ER) | payer MEDICARE, MEDICAID ==
[~2019-12-25] VITALS: Ht 180.3 cm; Wt 68.2 kg
[2019-12-25 18:23] VITALS: TEMP 97.4
[2019-12-25] MEDS ORDERED: HUMIRA PEN40 MG/0.4 SQ (18:25)
[2019-12-25 18:56] LABS: BASO % 0.3 % (0.0-2.0); EOS # 0.2 (0.0-0.7); EOS % 1.5 % (0-4.0); GRAN # 9.1 (1.4-6.5); GRAN % 77.1 % (42.2-75.2); HEMATOCRIT 43.2 % (42.0-52.0); HEMOGLOBIN 14.6 g/dl (13.5-18.0); LYMPH # 1.7 (1.2-3.4); LYMPH % 14.6 % (20.0-51.0); MEAN CELL VOLUME 89 fl (80.0-100.0); MEAN CORPUSCULAR HEMOGLOBIN 30 pg (27.0-31.0); MEAN CORPUSCULAR HGB CONC 34 g/dl (33.0-37.0); MEAN PLATELET VOLUME 9.5 fl (7.4-10.4); MONO # 0.7 (0.1-0.6); MONO % 6.2 % (1.7-9.3); PLATELET COUNT 179 K/mm3 (130-400); RED BLOOD COUNT 4.88 M/mm3 (4.20-5.60); REDCELL DISTRIBUTION WIDTH-CV 13.2 % (11.5-14.5)
[2019-12-25 19:06] LABS: PROTHROMBIN TIME 10.9 SECONDS (9.7-12.8)
[2019-12-25 19:12] LABS: ALBUMIN 4.6 gm/dL (3.5-5.0); BILIRUBIN,TOTAL 0.8 mg/dL (0.0-1.0); CALCIUM 9.2 mg/dL (8.4-10.2); POTASSIUM 4.2 mmol/L (3.4-5.0); TOTAL PROTEIN 7.4 gm/dL (6.4-8.2)
[2019-12-25 19:16] LABS: C-REACTIVE PROTEIN 0.5 mg/dL (0.0-0.9)
[2019-12-25 19:55] VITALS: BP 118/79
[2019-12-25] MEDS ORDERED: CLEOCIN HCL300 MG PO (19:57)
[2019-12-25 20:14] VITALS: PULSE 106
== END 2019-12-25 20:10 | disposition home or self-care (01) ==
LOC: COL.ER 18:18
PROVIDERS: Nurse Practitioner
DX: L03.116 Cellulitis of left lower limb (principal); L03.115 Cellulitis of right lower limb; M35.2 Behcet's disease; F17.210 Nicotine dependence, cigarettes, uncomplicated; Z88.1 Allergy status to other antibiotic agents

== ENCOUNTER 2019-12-27 17:07 | Emergency (ER) | payer MEDICARE, MEDICAID ==
[~2019-12-27] VITALS: Ht 180.3 cm; Wt 68.2 kg
[~2019-12-27 17:07] MED LIST changes: +CLEOCIN HCL300 MG PO; +HUMIRA PEN40 MG/0.4 SQ
[2019-12-27 17:12] VITALS: TEMP 99
[2019-12-27 18:24] LABS: BASO % 0.2 % (0.0-2.0); EOS # 0.2 (0.0-0.7); EOS % 3.9 % (0-4.0); GRAN % 56.4 % (42.2-75.2); HEMATOCRIT 39.9 % (42.0-52.0); HEMOGLOBIN 13.7 g/dl (13.5-18.0); LYMPH # 1.6 (1.2-3.4); LYMPH % 30.5 % (20.0-51.0); MEAN CELL VOLUME 86 fl (80.0-100.0); MEAN CORPUSCULAR HEMOGLOBIN 30 pg (27.0-31.0); MEAN CORPUSCULAR HGB CONC 34 g/dl (33.0-37.0); MEAN PLATELET VOLUME 9.3 fl (7.4-10.4); MONO # 0.5 (0.1-0.6); MONO % 8.8 % (1.7-9.3); PLATELET COUNT 174 K/mm3 (130-400); RED BLOOD COUNT 4.63 M/mm3 (4.20-5.60); REDCELL DISTRIBUTION WIDTH-CV 12.6 % (11.5-14.5)
[2019-12-27 18:38] LABS: ALBUMIN 4.4 gm/dL (3.5-5.0); BILIRUBIN,TOTAL 0.6 mg/dL (0.0-1.0); C-REACTIVE PROTEIN 2.3 mg/dL (0.0-0.9); CALCIUM 9.3 mg/dL (8.4-10.2); CREATININE, serum 0.88 (0.66-1.25); POTASSIUM 3.5 mmol/L (3.4-5.0); TOTAL PROTEIN 7.2 gm/dL (6.4-8.2)
[2019-12-27] MEDS ORDERED: DOXYCYCLINE 10100 MG PO (18:47)
[2019-12-27] MEDS ORDERED: DILAUDID 2MG TAB2 MG PO (18:47)
[2019-12-27 19:45] VITALS: BP 118/78; PULSE 96
== END 2019-12-27 19:47 | disposition home or self-care (01) ==
LOC: COL.ER 17:07
PROVIDERS: Emergency Medicine
DX: L03.116 Cellulitis of left lower limb (principal); L03.115 Cellulitis of right lower limb; M79.605 Pain in left leg; M79.604 Pain in right leg; M35.2 Behcet's disease; Z79.899 Other long term (current) drug therapy; F17.210 Nicotine dependence, cigarettes, uncomplicated

== ENCOUNTER 2020-01-27 17:59 | Emergency (ER) | payer MEDICARE, MEDICAID ==
[~2020-01-27] VITALS: Ht 182.9 cm; Wt 68.2 kg
[2020-01-27 18:09] VITALS: TEMP 98
[2020-01-27 18:52] LABS: BASO % 0.4 % (0.0-2.0); EOS # 0.5 (0.0-0.7); EOS % 7.3 % (0-4.0); GRAN # 3.3 (1.4-6.5); GRAN % 44.7 % (42.2-75.2); HEMATOCRIT 51.1 % (42.0-52.0); HEMOGLOBIN 16.9 g/dl (13.5-18.0); LYMPH % 40.5 % (20.0-51.0); MEAN CELL VOLUME 90 fl (80.0-100.0); MEAN CORPUSCULAR HEMOGLOBIN 30 pg (27.0-31.0); MEAN CORPUSCULAR HGB CONC 33 g/dl (33.0-37.0); MEAN PLATELET VOLUME 9.1 fl (7.4-10.4); MONO # 0.5 (0.1-0.6); MONO % 6.3 % (1.7-9.3); PLATELET COUNT 234 K/mm3 (130-400); RED BLOOD COUNT 5.71 M/mm3 (4.20-5.60); REDCELL DISTRIBUTION WIDTH-CV 12.7 % (11.5-14.5)
[2020-01-27 19:05] LABS: ALANINE AMINOTRANSFERASE 26 U/L (4-49); ALBUMIN 4.8 gm/dL (3.5-5.0); ALKALINE PHOSPHATASE 75 U/L (50-136); ANION GAP 11 mmol/L (7-16); AST,SGOT 38 U/L (15-37); BILIRUBIN,TOTAL 0.5 mg/dL (0.0-1.0); BLOOD UREA NITROGEN 9 mg/dL (9-20); CALCIUM 9.4 mg/dL (8.4-10.2); CARBON DIOXIDE 28 mmol/L (22-30); CHLORIDE 102 mmol/L (98-107); CREATININE, serum 0.91 (0.66-1.25); GLUCOSE 104 mg/dL (74-106); POTASSIUM 4.4 mmol/L (3.4-5.0); SODIUM 140 mmol/L (137-145); TOTAL PROTEIN 8.1 gm/dL (6.4-8.2)
[2020-01-27 19:20] LABS: TROPONIN-I < 0.012 ng/mL (0.000-0.035)
[2020-01-27 20:42] VITALS: BP 130/81; PULSE 80
== END 2020-01-27 20:45 | disposition home or self-care (01) ==
LOC: COL.ER 17:59
PROVIDERS: Emergency Medicine
DX: R20.2 Paresthesia of skin (principal)
CPT/HCPCS: J1200; J2060; J2765; J7030

== ENCOUNTER 2020-03-19 23:27 | Emergency (ER) | payer MEDICARE, MEDICAID ==
[~2020-03-19] VITALS: Ht 180.3 cm; Wt 68.2 kg
[2020-03-19 23:31] VITALS: TEMP 98.8
[2020-03-19 23:54] LABS: BASO % 0.2 % (0.0-2.0); EOS # 0.3 (0.0-0.7); EOS % 1.8 % (0-4.0); GRAN # 11.9 (1.4-6.5); GRAN % 80.3 % (42.2-75.2); HEMATOCRIT 49.3 % (42.0-52.0); HEMOGLOBIN 17.2 g/dl (13.5-18.0); LYMPH # 1.9 (1.2-3.4); MEAN CELL VOLUME 85 fl (80.0-100.0); MEAN CORPUSCULAR HEMOGLOBIN 30 pg (27.0-31.0); MEAN CORPUSCULAR HGB CONC 35 g/dl (33.0-37.0); MEAN PLATELET VOLUME 8.8 fl (7.4-10.4); MONO # 0.6 (0.1-0.6); MONO % 4.3 % (1.7-9.3); PLATELET COUNT 211 K/mm3 (130-400); RED BLOOD COUNT 5.78 M/mm3 (4.20-5.60); REDCELL DISTRIBUTION WIDTH-CV 11.7 % (11.5-14.5)
[2020-03-20 00:18] LABS: ALBUMIN 5.1 gm/dL (3.5-5.0); BILIRUBIN,TOTAL 0.9 mg/dL (0.0-1.0); C-REACTIVE PROTEIN 1.7 mg/dL (0.0-0.9); CALCIUM 9.9 mg/dL (8.4-10.2); CREATININE, serum 1.07 (0.66-1.25); POTASSIUM 3.5 mmol/L (3.4-5.0); TOTAL PROTEIN 8.8 gm/dL (6.4-8.2)
[2020-03-20] MEDS ORDERED: PERCOCET 325 MG1 TA2 PO (00:32)
[2020-03-20] MEDS ORDERED: DOXYCYCLINE 10100 MG PO (00:34)
[2020-03-20 01:27] VITALS: BP 141/80; PULSE 101
== END 2020-03-20 01:38 | disposition home or self-care, planned readmission (81) ==
LOC: COL.ER 23:27
PROVIDERS: Physician Assistant
DX: L03.116 Cellulitis of left lower limb (principal); L03.115 Cellulitis of right lower limb; F17.210 Nicotine dependence, cigarettes, uncomplicated
CPT/HCPCS: J1170; J7030

== ENCOUNTER 2020-06-19 20:29 | Emergency (ER) | payer MEDICARE, MEDICAID ==
[~2020-06-19] VITALS: Ht 180.3 cm; Wt 68.2 kg
[2020-06-19 20:35] VITALS: TEMP 98.3
[2020-06-19 20:55] LABS: BASO % 0.2 % (0.0-2.0); EOS # 0.2 (0.0-0.7); EOS % 0.9 % (0-4.0); GRAN # 13.2 (1.4-6.5); GRAN % 82.9 % (42.2-75.2); HEMATOCRIT 48.8 % (42.0-52.0); HEMOGLOBIN 16.8 g/dl (13.5-18.0); LYMPH # 1.8 (1.2-3.4); LYMPH % 11.1 % (20.0-51.0); MEAN CELL VOLUME 85 fl (80.0-100.0); MEAN CORPUSCULAR HEMOGLOBIN 29 pg (27.0-31.0); MEAN CORPUSCULAR HGB CONC 34 g/dl (33.0-37.0); MEAN PLATELET VOLUME 8.9 fl (7.4-10.4); MONO # 0.7 (0.1-0.6); MONO % 4.6 % (1.7-9.3); PLATELET COUNT 208 K/mm3 (130-400); RED BLOOD COUNT 5.74 M/mm3 (4.20-5.60); REDCELL DISTRIBUTION WIDTH-CV 12.4 % (11.5-14.5)
[2020-06-19 21:08] LABS: ALBUMIN 5.5 gm/dL (3.5-5.0); BILIRUBIN,TOTAL 1.4 mg/dL (0.0-1.0); C-REACTIVE PROTEIN 1.1 mg/dL (0.0-0.9); CALCIUM 10.2 mg/dL (8.4-10.2); CREATININE, serum 0.94 (0.66-1.25); POTASSIUM 3.4 mmol/L (3.4-5.0); TOTAL PROTEIN 9.2 gm/dL (6.4-8.2)
[2020-06-19] MEDS ORDERED: CLEOCIN HCL300 MG PO (22:29)
[2020-06-19] MEDS ORDERED: NORCO 325 MG-51 TAB PO (22:29)
[2020-06-19 23:00] VITALS: BP 91/63; PULSE 88
[2020-06-19 23:48] LABS: ERYTHROCYTE SEDIMENTATION RATE 4 mm/hr (0-15)
== END 2020-06-19 23:05 | disposition home or self-care (01) ==
LOC: COL.ER 20:29
PROVIDERS: Emergency Medicine
DX: L03.116 Cellulitis of left lower limb (principal); L03.115 Cellulitis of right lower limb; Z88.1 Allergy status to other antibiotic agents; Z79.899 Other long term (current) drug therapy
CPT/HCPCS: J0780; J1100; J1885; J7030

== ENCOUNTER 2020-12-03 22:49 | Emergency (ER) | payer MEDICARE, MEDICAID ==
[~2020-12-03] VITALS: Ht 180.3 cm; Wt 65.9 kg
[2020-12-03 22:55] VITALS: TEMP 97.6
[2020-12-03 23:39] LABS: STREP SCREEN NEGATIVE
[2020-12-04] MEDS ORDERED: MOTRIN 400400 MG/TAB PO (00:04)
[2020-12-04 00:10] VITALS: BP 125/71; PULSE 84
== END 2020-12-04 00:10 | disposition home or self-care (01) ==
LOC: COL.ER 22:49
PROVIDERS: Emergency Medicine
DX: J02.9 Acute pharyngitis, unspecified (principal); Z20.822 Contact with and (suspected) exposure to COVID-19; Z88.1 Allergy status to other antibiotic agents

== ENCOUNTER 2020-12-19 17:10 | Emergency (ER) | payer MEDICARE, MEDICAID ==
[~2020-12-19] VITALS: Ht 182.9 cm; Wt 68.2 kg
[~2020-12-19 17:10] MED LIST changes: +MOTRIN 400400 MG/TAB PO
[2020-12-19] MEDS ORDERED: ZOFRAN ODT4 MG PO (18:11)
[2020-12-19] MEDS ORDERED: PROTONIX 40MG T40 MG PO (18:11)
[2020-12-19 18:30] VITALS: BP 113/86; PULSE 97; TEMP 97.7
[2020-12-20] MEDS ORDERED: CLEOCIN HCL300 MG PO (03:50)
== END 2020-12-19 18:32 | disposition home or self-care (01) ==
LOC: COL.ER 17:10
DX: R11.2 Nausea with vomiting, unspecified (principal); J02.9 Acute pharyngitis, unspecified; K21.9 Gastro-esophageal reflux disease without esophagitis; M35.00 Sjogren syndrome, unspecified; F17.210 Nicotine dependence, cigarettes, uncomplicated; Z88.1 Allergy status to other antibiotic agents
CPT/HCPCS: J2405

== ENCOUNTER 2020-12-20 02:32 | Emergency (ER) | payer MEDICARE, MEDICAID ==
[~2020-12-20] VITALS: Ht 180.3 cm; Wt 68.2 kg
[~2020-12-20 02:32] MED LIST changes: +ZOFRAN ODT4 MG PO
[2020-12-20 02:58] LABS: BASO % 0.3 % (0.0-2.0); EOS # 0.1 (0.0-0.7); EOS % 1.2 % (0-4.0); GRAN # 4.6 (1.4-6.5); GRAN % 80.3 % (42.2-75.2); HEMATOCRIT 48.2 % (42.0-52.0); HEMOGLOBIN 16.8 g/dl (13.5-18.0); LYMPH # 0.8 (1.2-3.4); LYMPH % 14.1 % (20.0-51.0); MEAN CELL VOLUME 84 fl (80.0-100.0); MEAN CORPUSCULAR HEMOGLOBIN 29 pg (27.0-31.0); MEAN CORPUSCULAR HGB CONC 35 g/dl (33.0-37.0); MEAN PLATELET VOLUME 9.1 fl (7.4-10.4); MONO # 0.2 (0.1-0.6); MONO % 3.8 % (1.7-9.3); PLATELET COUNT 183 K/mm3 (130-400); RED BLOOD COUNT 5.72 M/mm3 (4.20-5.60); REDCELL DISTRIBUTION WIDTH-CV 12.1 % (11.5-14.5)
[2020-12-20 03:07] LABS: ALBUMIN 4.7 gm/dL (3.5-5.0); BILIRUBIN,TOTAL 0.5 mg/dL (0.0-1.0); CALCIUM 8.9 mg/dL (8.4-10.2); CREATININE, serum 0.84 (0.66-1.25); POTASSIUM 3.4 mmol/L (3.4-5.0); TOTAL PROTEIN 7.8 gm/dL (6.4-8.2)
[2020-12-20] MEDS ORDERED: CLEOCIN HCL300 MG PO (03:50)
[2020-12-20 04:13] VITALS: TEMP 97.8
[2020-12-20 04:30] VITALS: BP 104/60; PULSE 89
== END 2020-12-20 04:18 | disposition home or self-care (01) ==
LOC: COL.ER 02:32
PROVIDERS: Emergency Medicine
DX: R11.2 Nausea with vomiting, unspecified (principal); R53.81 Other malaise; R53.83 Other fatigue; L53.9 Erythematous condition, unspecified; Z20.822 Contact with and (suspected) exposure to COVID-19; Z88.1 Allergy status to other antibiotic agents
CPT/HCPCS: J2765; J7120

== ENCOUNTER 2021-02-03 15:22 | Emergency (ER) | payer MEDICARE, MEDICAID ==
[~2021-02-03] VITALS: Ht 180.3 cm; Wt 68.2 kg
[2021-02-03 15:50] VITALS: BP 129/88; PULSE 80; TEMP 96.8
[2021-02-04] MEDS ORDERED: CLEOCIN HCL300 MG PO (00:58)
[2021-02-04] MEDS ORDERED: LOTRIMIN1% TP (00:58)
[2021-02-04] MEDS ORDERED: KENALOG DENTAL P5 GM DT (00:58)
== END 2021-02-03 17:27 | disposition left against medical advice (07) ==
LOC: COL.ER 15:22
DX: K13.70 Unspecified lesions of oral mucosa (principal)

== ENCOUNTER 2021-02-03 22:05 | Emergency (ER) | payer MEDICARE, MEDICAID ==
[~2021-02-03] VITALS: Ht 180.3 cm; Wt 52.3 kg
[2021-02-03 22:15] VITALS: TEMP 97.8
[2021-02-04] MEDS ORDERED: KENALOG DENTAL P5 GM DT (00:58)
[2021-02-04] MEDS ORDERED: CLEOCIN HCL300 MG PO (00:58)
[2021-02-04] MEDS ORDERED: LOTRIMIN1% TP (00:58)
[2021-02-04 01:24] VITALS: BP 132/70; PULSE 78
--- NOTE | 2021-02-04 13:06 | NUR ---
[employer] received consult for patient as he has difficulty affording his medications and obtaining primary care due to lack of insurance. SW attempted to contact patient at #[phone] and could not get through. SW contacted #[phone] and patient's mother, Jeniffer answered. Jeniffer advised she and patient live together and she will have patient call SW back.
== END 2021-02-04 01:26 | disposition home or self-care (01) ==
LOC: COL.ER 22:05
DX: K12.0 Recurrent oral aphthae (principal); K02.9 Dental caries, unspecified; B35.4 Tinea corporis; K04.7 Periapical abscess without sinus; K13.70 Unspecified lesions of oral mucosa; F17.210 Nicotine dependence, cigarettes, uncomplicated; Z88.1 Allergy status to other antibiotic agents

== ENCOUNTER 2021-02-18 02:31 | Emergency (ER) | payer MEDICARE, MEDICAID ==
[~2021-02-18] VITALS: Ht 180.3 cm; Wt 68.2 kg
[~2021-02-18 02:31] MED LIST changes: +LOTRIMIN1% TP
[2021-02-18 02:47] VITALS: TEMP 97.8
[2021-02-18 03:56] LABS: BASO % 0.3 % (0.0-2.0); EOS # 0.3 (0.0-0.7); EOS % 4.3 % (0-4.0); GRAN # 3.7 (1.4-6.5); GRAN % 54.2 % (42.2-75.2); HEMATOCRIT 44.9 % (42.0-52.0); HEMOGLOBIN 15.6 g/dl (13.5-18.0); LYMPH # 2.3 (1.2-3.4); LYMPH % 33.3 % (20.0-51.0); MEAN CELL VOLUME 84 fl (80.0-100.0); MEAN CORPUSCULAR HEMOGLOBIN 29 pg (27.0-31.0); MEAN CORPUSCULAR HGB CONC 35 g/dl (33.0-37.0); MEAN PLATELET VOLUME 9.2 fl (7.4-10.4); MONO # 0.5 (0.1-0.6); MONO % 7.8 % (1.7-9.3); PLATELET COUNT 203 K/mm3 (130-400); RED BLOOD COUNT 5.33 M/mm3 (4.20-5.60); REDCELL DISTRIBUTION WIDTH-CV 12.3 % (11.5-14.5)
[2021-02-18 04:13] LABS: ALBUMIN 4.3 gm/dL (3.5-5.0); BILIRUBIN,TOTAL 0.3 mg/dL (0.0-1.0); CALCIUM 8.9 mg/dL (8.4-10.2); CREATININE, serum 0.77 (0.66-1.25); POTASSIUM 3.8 mmol/L (3.4-5.0); TOTAL PROTEIN 7.2 gm/dL (6.4-8.2)
[2021-02-18] MEDS ORDERED: ZOFRAN ODT4 MG PO (05:32)
[2021-02-18] MEDS ORDERED: PROTONIX 40MG T40 MG PO (05:32)
[2021-02-18 05:45] VITALS: BP 120/65; PULSE 68
== END 2021-02-18 05:45 | disposition home or self-care (01) ==
LOC: COL.ER 02:31
PROVIDERS: Personal Emergency Response Attendant
DX: K21.00 Gastro-esophageal reflux disease with esophagitis, without bleeding (principal); M35.00 Sjogren syndrome, unspecified; M35.2 Behcet's disease; F17.210 Nicotine dependence, cigarettes, uncomplicated; Z88.1 Allergy status to other antibiotic agents
CPT/HCPCS: C9113; J2270; J2405; J7030

== ENCOUNTER 2021-03-06 14:20 | Emergency (ER) | payer MEDICARE, MEDICAID ==
[~2021-03-06] VITALS: Ht 180.3 cm; Wt 67.7 kg
[2021-03-06 14:31] VITALS: BP 129/83; TEMP 98.3
[2021-03-06] MEDS ORDERED: AMOXICILLIN 8751 TAB PO (15:00)
[2021-03-06 15:25] VITALS: PULSE 76
== END 2021-03-06 15:25 | disposition home or self-care (01) ==
LOC: COL.ER 14:20
DX: S51.832A Puncture wound without foreign body of left forearm, initial encounter (principal); M35.2 Behcet's disease; Z79.899 Other long term (current) drug therapy; X99.8XXA Assault by other sharp object, initial encounter

== ENCOUNTER 2021-04-25 22:42 | Emergency (ER) | payer MEDICARE, MEDICAID ==
[~2021-04-25] VITALS: Ht 180.3 cm; Wt 67.7 kg
[~2021-04-25 22:42] MED LIST changes: +AMOXICILLIN 8751 TAB PO
[2021-04-25 22:56] VITALS: TEMP 98
[2021-04-25] MEDS ORDERED: PREDNISONE20 MG PO (23:22)
[2021-04-25] MEDS ORDERED: PERCOCET 325 MG1 TA2 PO (23:22)
[2021-04-25 23:30] VITALS: BP 143/75; PULSE 91
== END 2021-04-25 23:30 | disposition home or self-care (01) ==
LOC: COL.ER 22:42
DX: M35.2 Behcet's disease (principal); M35.00 Sjogren syndrome, unspecified; F17.210 Nicotine dependence, cigarettes, uncomplicated; Z88.8 Allergy status to other drugs, medicaments and biological substances
CPT/HCPCS: J7512

== ENCOUNTER 2021-05-04 19:52 | Emergency (ER) | payer MEDICARE, MEDICAID ==
[~2021-05-04] VITALS: Ht 180.3 cm; Wt 65.9 kg
[2021-05-04 20:11] VITALS: TEMP 97.2
[2021-05-04] MEDS ORDERED: AMOXICILLIN 8751 TAB PO (20:42)
[2021-05-04 21:00] VITALS: BP 132/70; PULSE 76
[2021-05-05] MEDS ORDERED: NORCO 325 MG-51 TAB PO (12:13)
== END 2021-05-04 21:00 | disposition home or self-care (01) ==
LOC: COL.ER 19:52
DX: K04.7 Periapical abscess without sinus (principal); F17.210 Nicotine dependence, cigarettes, uncomplicated; Z88.1 Allergy status to other antibiotic agents

== ENCOUNTER 2021-05-05 11:42 | Emergency (ER) | payer MEDICARE, MEDICAID ==
[~2021-05-05] VITALS: Ht 180.3 cm; Wt 67.7 kg
[2021-05-05 11:54] VITALS: BP 113/80; TEMP 97.8
[2021-05-05] MEDS ORDERED: NORCO 325 MG-51 TAB PO (12:13)
[2021-05-05 12:28] VITALS: PULSE 95
== END 2021-05-05 12:28 | disposition home or self-care (01) ==
LOC: COL.ER 11:42
DX: K04.7 Periapical abscess without sinus (principal); M35.00 Sjogren syndrome, unspecified; M35.2 Behcet's disease; F17.210 Nicotine dependence, cigarettes, uncomplicated

== ENCOUNTER 2021-05-28 19:57 | Emergency (ER) | payer MEDICARE, MEDICAID ==
[~2021-05-28] VITALS: Ht 180.3 cm; Wt 67.7 kg
[2021-05-28 20:14] VITALS: TEMP 98.5
[2021-05-28] MEDS ORDERED: CLEOCIN HCL300 MG PO (21:26)
[2021-05-28] MEDS ORDERED: NORCO 325 MG-51 TAB PO (21:26)
[2021-05-28 21:43] VITALS: BP 133/86; PULSE 90
== END 2021-05-28 21:43 | disposition home or self-care (01) ==
LOC: COL.ER 19:57
DX: K04.7 Periapical abscess without sinus (principal); M35.00 Sjogren syndrome, unspecified; M35.2 Behcet's disease; Z88.1 Allergy status to other antibiotic agents; Z79.899 Other long term (current) drug therapy

== ENCOUNTER 2021-05-29 09:52 | Emergency (ER) | payer MEDICARE, MEDICAID ==
[~2021-05-29] VITALS: Ht 180.3 cm; Wt 67.7 kg
[2021-05-29 10:09] VITALS: BP 153/91; TEMP 97.4
[2021-05-29 11:44] VITALS: PULSE 82
== END 2021-05-29 11:44 | disposition home or self-care (01) ==
LOC: COL.ER 09:52
DX: K04.7 Periapical abscess without sinus (principal); M35.2 Behcet's disease; F17.200 Nicotine dependence, unspecified, uncomplicated; Z79.899 Other long term (current) drug therapy

== ENCOUNTER 2021-06-02 05:25 | Emergency (ER) | payer MEDICARE, MEDICAID ==
[~2021-06-02] VITALS: Ht 180.3 cm; Wt 67.7 kg
[2021-06-02 05:38] VITALS: BP 139/94; PULSE 92; TEMP 97.9
[2021-06-02] MEDS ORDERED: PERCOCET 325 MG1 TA2 PO (05:46)
== END 2021-06-02 06:15 | disposition home or self-care (01) ==
LOC: COL.ER 05:25
DX: K04.7 Periapical abscess without sinus (principal); M35.00 Sjogren syndrome, unspecified; M35.2 Behcet's disease

== ENCOUNTER 2021-07-26 15:53 | Emergency (ER) | payer MEDICARE, MEDICAID ==
[~2021-07-26] VITALS: Ht 180.3 cm; Wt 63.6 kg
[2021-07-26 17:00] VITALS: TEMP 97.5
[2021-07-26] MEDS ORDERED: PREDNISONE10 MG PO (17:45)
[2021-07-26] MEDS ORDERED: LIDOCAINE HC20 MG/M2 PO (17:48)
[2021-07-26 18:24] VITALS: BP 110/87; PULSE 77
== END 2021-07-26 18:24 | disposition home or self-care (01) ==
LOC: COL.ER 15:53
DX: K12.0 Recurrent oral aphthae (principal); M35.2 Behcet's disease; M35.00 Sjogren syndrome, unspecified; F17.200 Nicotine dependence, unspecified, uncomplicated; Z79.52 Long term (current) use of systemic steroids
CPT/HCPCS: J7512

== ENCOUNTER 2021-08-22 03:20 | Emergency (ER) | payer MEDICARE, MEDICAID ==
[~2021-08-22] VITALS: Ht 180.3 cm; Wt 67.7 kg
[~2021-08-22 03:20] MED LIST changes: +LIDOCAINE HC20 MG/M2 PO
[2021-08-22 03:23] VITALS: BP 128/81; TEMP 97.6
[2021-08-22] MEDS ORDERED: PROTONIX 40MG T40 MG PO (05:06)
[2021-08-22] MEDS ORDERED: CARAFATE 1GM1 G PO (05:06)
[2021-08-22 07:05] VITALS: PULSE 84
== END 2021-08-22 07:05 | disposition home or self-care (01) ==
LOC: COL.ER 03:20
DX: K29.70 Gastritis, unspecified, without bleeding (principal); K22.4 Dyskinesia of esophagus; M35.00 Sjogren syndrome, unspecified; M35.2 Behcet's disease; F17.210 Nicotine dependence, cigarettes, uncomplicated; Z79.899 Other long term (current) drug therapy
CPT/HCPCS: J2060; J2550

== ENCOUNTER 2021-09-07 15:45 | Emergency (ER) | payer MEDICARE, MEDICAID ==
[~2021-09-07] VITALS: Ht 180.3 cm; Wt 67.7 kg
[2021-09-07 15:50] VITALS: TEMP 97.4
[2021-09-07] MEDS ORDERED: FLEXERIL 1010 MG/TAB PO (15:59)
[2021-09-07 16:08] VITALS: BP 135/78; PULSE 85
== END 2021-09-07 16:11 | disposition home or self-care (01) ==
LOC: COL.ER 15:45
DX: S16.1XXA Strain of muscle, fascia and tendon at neck level, initial encounter (principal); M35.00 Sjogren syndrome, unspecified; M35.2 Behcet's disease; X58.XXXA Exposure to other specified factors, initial encounter

== ENCOUNTER 2021-10-11 08:54 | Emergency (ER) | payer MEDICARE, MEDICAID ==
[~2021-10-11] VITALS: Ht 180.3 cm; Wt 68.2 kg
[~2021-10-11 08:54] MED LIST changes: +FLEXERIL 1010 MG/TAB PO
[2021-10-11 11:28] VITALS: BP 114/72; PULSE 66
== END 2021-10-11 11:28 | disposition home or self-care (01) ==
LOC: COL.ER 08:54
DX: J06.9 Acute upper respiratory infection, unspecified (principal); F17.210 Nicotine dependence, cigarettes, uncomplicated; Z20.822 Contact with and (suspected) exposure to COVID-19

== ENCOUNTER 2022-01-29 16:38 | Emergency (ER) | payer MEDICARE, MEDICAID ==
[~2022-01-29] VITALS: Ht 180.3 cm; Wt 72.7 kg
[~2022-01-29 16:38] MED LIST changes: +BACTRIM DS 8001 TAB PO
[2022-01-29 16:55] VITALS: TEMP 98.4
[2022-01-29 17:30] VITALS: BP 124/73; PULSE 75
[2022-01-29] MEDS ORDERED: PREDNISONE10 MG PO (17:30)
[2022-01-29] MEDS ORDERED: PERCOCET 325 MG1 TA2 PO (17:31)
== END 2022-01-29 17:30 | disposition home or self-care (01) ==
LOC: COL.ER 16:38
DX: I80.03 Phlebitis and thrombophlebitis of superficial vessels of lower extremities, bilateral (principal); M35.2 Behcet's disease; K21.00 Gastro-esophageal reflux disease with esophagitis, without bleeding; K11.6 Mucocele of salivary gland; F17.200 Nicotine dependence, unspecified, uncomplicated; Z28.310 Unvaccinated for COVID-19

== ENCOUNTER 2022-03-10 14:42 | Emergency (ER) | payer MEDICARE, MEDICAID ==
[~2022-03-10] VITALS: Ht 182.9 cm; Wt 68.2 kg
[2022-03-10 14:49] VITALS: TEMP 97.8
[2022-03-10 16:13] LABS: BASO % 0.2 % (0.0-2.0); EOS # 0.2 K/mm3 (0.0-0.7); EOS % 3.5 % (0.0-4.0); GRAN # 3.7 K/mm3 (1.4-6.5); GRAN % 64.4 % (42.2-75.2); HEMATOCRIT 44.4 % (42.0-52.0); HEMOGLOBIN 14.8 g/dl (13.5-18.0); LYMPH # 1.3 K/mm3 (1.2-3.4); LYMPH % 23.1 % (20.0-51.0); MEAN CELL VOLUME 87 fl (80.0-100.0); MEAN CORPUSCULAR HEMOGLOBIN 29 pg (27-31); MEAN CORPUSCULAR HGB CONC 33 g/dl (33.0-37.0); MEAN PLATELET VOLUME 9.2 fl (7.4-10.4); MONO # 0.5 K/mm3 (0.1-0.6); MONO % 8.3 % (1.7-9.3); PLATELET COUNT 174 K/mm3 (130-400); RED BLOOD COUNT 5.08 M/mm3 (4.20-5.60); REDCELL DISTRIBUTION WIDTH-CV 12.4 % (11.5-14.5)
[2022-03-10 16:29] LABS: ALANINE AMINOTRANSFERASE 12 U/L (0-55); ALBUMIN 4.1 gm/dL (3.5-5.0); ALKALINE PHOSPHATASE 67 U/L (40-150); ANION GAP 12 mmol/L (7-16); AST,SGOT 13 U/L (5-34); BILIRUBIN,TOTAL 0.3 mg/dL (0.2-1.2); BLOOD UREA NITROGEN 13 mg/dL (9-21); CALCIUM 8.9 mg/dL (8.4-10.2); CARBON DIOXIDE 23 mmol/L (22-29); CHLORIDE 103 mmol/L (98-107); CREATININE, serum 1.04 mg/dL (0.72-1.25); GLUCOSE 69 mg/dL (70-99); POTASSIUM 3.7 mmol/L (3.5-4.5); SODIUM 138 mmol/L (136-145); TOTAL PROTEIN 6.6 gm/dL (6.2-8.1)
[2022-03-10 16:36] LABS: TROPONIN-I < 0.010 ng/mL (0.00-0.033)
[2022-03-10 17:06] VITALS: BP 121/63; PULSE 78
== END 2022-03-10 17:16 | disposition home or self-care (01) ==
LOC: COL.ER 14:42
PROVIDERS: Emergency Medicine
DX: J06.9 Acute upper respiratory infection, unspecified (principal); R73.9 Hyperglycemia, unspecified; Z20.822 Contact with and (suspected) exposure to COVID-19; Z28.310 Unvaccinated for COVID-19
CPT/HCPCS: J7030

== ENCOUNTER 2022-03-23 16:36 | Emergency (ER) | payer MEDICARE, MEDICAID ==
[~2022-03-23] VITALS: Ht 180.3 cm; Wt 68.2 kg
[2022-03-23] MEDS ORDERED: AMOXICILLIN 8751 TAB PO (18:07)
[2022-03-23 18:12] VITALS: BP 120/81; PULSE 78; TEMP 98.3
== END 2022-03-23 18:12 | disposition home or self-care (01) ==
LOC: COL.ER 16:36
DX: J01.90 Acute sinusitis, unspecified (principal); F17.210 Nicotine dependence, cigarettes, uncomplicated; Z20.822 Contact with and (suspected) exposure to COVID-19; Z88.1 Allergy status to other antibiotic agents; Z28.310 Unvaccinated for COVID-19

== ENCOUNTER 2022-03-25 18:03 | Emergency (ER) | payer MEDICARE, MEDICAID ==
[~2022-03-25] VITALS: Ht 180.3 cm; Wt 68.2 kg
[2022-03-25 18:14] VITALS: BP 137/80; TEMP 98.1
[2022-03-25] MEDS ORDERED: PREDNISONE20 MG PO (18:56)
[2022-03-25 19:12] VITALS: PULSE 84
== END 2022-03-25 19:12 | disposition home or self-care (01) ==
LOC: COL.ER 18:03
DX: R59.1 Generalized enlarged lymph nodes (principal); J32.9 Chronic sinusitis, unspecified; R10.32 Left lower quadrant pain; F17.200 Nicotine dependence, unspecified, uncomplicated; Z28.310 Unvaccinated for COVID-19
CPT/HCPCS: J7512

== ENCOUNTER 2022-03-29 19:21 | Emergency (ER) | payer MEDICARE, MEDICAID ==
[~2022-03-29] VITALS: Ht 180.3 cm; Wt 52.3 kg
[2022-03-29 19:33] VITALS: BP 199/104; TEMP 98
[2022-03-29 21:47] VITALS: PULSE 94
== END 2022-03-29 21:48 | disposition home or self-care (01) ==
LOC: COL.ER 19:21
DX: K22.89 Other specified disease of esophagus (principal)

== ENCOUNTER 2022-06-26 17:24 | Emergency (ER) | payer MEDICARE, MEDICAID ==
[~2022-06-26] VITALS: Ht 180.3 cm; Wt 69.1 kg
[2022-06-26 17:31] VITALS: TEMP 97.5
[2022-06-26] MEDS ORDERED: CARAFATE S1 GM/10 ML PO (18:13)
[2022-06-26] MEDS ORDERED: PERCOCET 325 MG1 TA2 PO (18:13)
[2022-06-26 18:40] VITALS: BP 135/66; PULSE 95
== END 2022-06-26 18:40 | disposition home or self-care (01) ==
LOC: COL.ER 17:24
DX: K12.0 Recurrent oral aphthae (principal); M35.2 Behcet's disease; Z20.822 Contact with and (suspected) exposure to COVID-19; Z28.310 Unvaccinated for COVID-19

== ENCOUNTER 2022-10-15 13:07 | Emergency (ER) | payer MEDICARE, MEDICAID ==
[~2022-10-15] VITALS: Ht 182.9 cm; Wt 71.8 kg
[~2022-10-15 13:07] MED LIST changes: +CARAFATE S1 GM/10 ML PO; +NYSTATIN OR100 MU/ML PO
[2022-10-15 13:32] VITALS: BP 137/80; TEMP 98.3
[2022-10-15] MEDS ORDERED: BACTRIM DS 8001 TAB PO (15:07)
[2022-10-15] MEDS ORDERED: PREDNISONE20 MG PO (15:08)
[2022-10-15 15:20] VITALS: PULSE 80
== END 2022-10-15 15:20 | disposition home or self-care (01) ==
LOC: COL.ER 13:07
DX: L85.3 Xerosis cutis (principal); L03.113 Cellulitis of right upper limb; M35.2 Behcet's disease; S60.511A Abrasion of right hand, initial encounter; Z88.2 Allergy status to sulfonamides; Z28.310 Unvaccinated for COVID-19; X58.XXXA Exposure to other specified factors, initial encounter

== ENCOUNTER → 2023-05-18 | Outpatient (CLI) | payer MEDICARE, MEDICAID | LOC: COL.LAB 14:37 | DX: F17.200 Nicotine dependence, unspecified, uncomplicated (principal) ==

== ENCOUNTER 2023-05-28 20:29 | Emergency (ER) | payer MEDICARE ==
[~2023-05-28] VITALS: Ht 182.9 cm; Wt 75.9 kg
[2023-05-28 21:08] LABS: STREP SCREEN NEGATIVE
[2023-05-28 21:47] VITALS: BP 113/47; PULSE 94; TEMP 98.7
[2023-05-28] MEDS ORDERED: MAGIC MOUTH PO (21:50)
== END 2023-05-28 21:47 | disposition home or self-care (01) ==
LOC: COL.ER 20:29
PROVIDERS: Nurse Practitioner Primary Care
DX: J03.90 Acute tonsillitis, unspecified (principal); Z28.310 Unvaccinated for COVID-19

== ENCOUNTER 2023-05-31 00:06 | Emergency (ER) | payer MEDICARE ==
[~2023-05-31] VITALS: Ht 182.9 cm; Wt 75.9 kg
[~2023-05-31 00:06] MED LIST changes: +MAGIC MOUTH PO
[2023-05-31] MEDS ORDERED: DIFLUCAN200 MG PO (01:26)
[2023-05-31 03:36] LABS: HIV 1/2 Antibodies Non-Reactive; HIV-1p24 Antigen Non-Reactive
[2023-05-31 04:30] VITALS: BP 109/68; PULSE 87; TEMP 98
== END 2023-05-31 04:30 | disposition home or self-care (01) ==
LOC: COL.ER 00:06
PROVIDERS: Emergency Medicine
DX: B37.81 Candidal esophagitis (principal)
CPT/HCPCS: J1100

== ENCOUNTER 2023-08-09 05:12 | Emergency (ER) | payer MEDICARE, MEDICAID ==
[~2023-08-09] VITALS: Ht 182.9 cm; Wt 75.0 kg
[~2023-08-09 05:12] MED LIST changes: +DIFLUCAN200 MG PO; +PEPCID 20MG TAB20 MG PO; +TAMIFLU 75MG75 MG PO
[2023-08-09 05:16] VITALS: TEMP 97.3
[2023-08-09 05:34] LABS: BASO % 0.1 % (0.0-2.0); EOS # 0.1 K/mm3 (0.0-0.7); EOS % 1.3 % (0.0-4.0); GRAN # 6.5 K/mm3 (1.4-6.5); GRAN % 72.4 % (42.2-75.2); HEMATOCRIT 47.4 % (42.0-52.0); HEMOGLOBIN 16.1 g/dl (13.5-18.0); LYMPH # 1.8 K/mm3 (1.2-3.4); LYMPH % 19.8 % (20.0-51.0); MEAN CELL VOLUME 85 fl (80.0-100.0); MEAN CORPUSCULAR HEMOGLOBIN 29 pg (27-31); MEAN CORPUSCULAR HGB CONC 34 g/dl (33.0-37.0); MONO # 0.6 K/mm3 (0.1-0.6); MONO % 6.1 % (1.7-9.3); PLATELET COUNT 263 K/mm3 (130-400); RED BLOOD COUNT 5.61 M/mm3 (4.20-5.60); REDCELL DISTRIBUTION WIDTH-CV 12.6 % (11.5-14.5)
[2023-08-09 05:47] LABS: ALANINE AMINOTRANSFERASE 18 U/L (0-55); ALBUMIN 4.9 gm/dL (3.5-5.0); ALKALINE PHOSPHATASE 93 U/L (40-150); ANION GAP 11 mmol/L (7-16); AST,SGOT 25 U/L (5-34); BILIRUBIN,TOTAL 0.7 mg/dL (0.2-1.2); BLOOD UREA NITROGEN 12 mg/dL (9-21); CALCIUM 10.1 mg/dL (8.4-10.2); CARBON DIOXIDE 23 mmol/L (22-29); CHLORIDE 107 mmol/L (98-107); CREATININE, serum 1.05 mg/dL (0.72-1.25); GLUCOSE 82 mg/dL (70-99); POTASSIUM 3.9 mmol/L (3.5-4.5); SODIUM 141 mmol/L (136-145); TOTAL PROTEIN 8.2 gm/dL (6.2-8.1)
[2023-08-09 05:56] LABS: TROPONIN-I < 0.010 ng/mL (0.00-0.033)
[2023-08-09 07:15] VITALS: BP 102/87; PULSE 80
== END 2023-08-09 07:33 | disposition home or self-care (01) ==
LOC: COL.ER 05:12
PROVIDERS: Personal Emergency Response Attendant
DX: R07.9 Chest pain, unspecified (principal); F17.210 Nicotine dependence, cigarettes, uncomplicated
CPT/HCPCS: C9113; J1885; J2270; J2405; J7030

== ENCOUNTER → 2023-08-22 | Outpatient (CLI) | payer MEDICARE, MEDICAID ==
[~2023-08-22] MED LIST changes: +Albuterol 0.083% Neb Soln 2.5 MG/3 ML UD IH ONE; +Methacholine Vial A (Clear Label Base-Cntrl) IH ONE; +Methacholine Vial B (Red Label) 0.0625 MG/ML 3 ML VIAL.NEB IH ONE; +Methacholine Vial C (Orange Label) 0.25 MG/ML 3 ML VIAL.NEB IH ONE; +Methacholine Vial D (Yellow Label) 1 MG/ML 3 ML VIAL.NEB IH ONE; +Methacholine Vial E (Green Label) 4 MG/ML 3 ML VIAL.NEB IH ONE; +Methacholine Vial F (Blue Label) 16 MG/ML 3 ML VIAL.NEB IH ONE
== END ==
LOC: COL.CARD 10:36
DX: R06.02 Shortness of breath (principal)
CPT/HCPCS: J7674

== ENCOUNTER 2024-04-24 23:51 | Emergency (ER) | payer MEDICARE, MEDICAID ==
[~2024-04-24] VITALS: Ht 182.9 cm; Wt 72.3 kg
[~2024-04-24 23:51] MED LIST changes: -Albuterol 0.083% Neb Soln 2.5 MG/3 ML UD IH ONE; -Methacholine Vial A (Clear Label Base-Cntrl) IH ONE; -Methacholine Vial B (Red Label) 0.0625 MG/ML 3 ML VIAL.NEB IH ONE; -Methacholine Vial C (Orange Label) 0.25 MG/ML 3 ML VIAL.NEB IH ONE; -Methacholine Vial D (Yellow Label) 1 MG/ML 3 ML VIAL.NEB IH ONE; -Methacholine Vial E (Green Label) 4 MG/ML 3 ML VIAL.NEB IH ONE; -Methacholine Vial F (Blue Label) 16 MG/ML 3 ML VIAL.NEB IH ONE
[2024-04-24 23:58] VITALS: TEMP 98.1
[2024-04-25] MEDS ORDERED: NS 1,000 ML IV ONE (00:30)
[2024-04-25] MEDS ORDERED: Ketorolac 30 MG/ML VIAL IV ONE (00:30)
[2024-04-25 00:51] LABS: COLLECTION METHOD CLEAN CATCH
[2024-04-25 00:54] LABS: BASO % 0.4 % (0.0-2.0); EOS # 0.4 K/mm3 (0.0-0.7); EOS % 5.4 % (0.0-4.0); GRAN # 3.4 K/mm3 (1.4-6.5); GRAN % 50.3 % (42.2-75.2); HEMATOCRIT 45.2 % (42.0-52.0); HEMOGLOBIN 15.6 g/dl (13.5-18.0); LYMPH # 2.3 K/mm3 (1.2-3.4); LYMPH % 34.8 % (20.0-51.0); MEAN CELL VOLUME 87 fl (80.0-100.0); MEAN CORPUSCULAR HEMOGLOBIN 30 pg (27-31); MEAN CORPUSCULAR HGB CONC 35 g/dl (33.0-37.0); MEAN PLATELET VOLUME 8.7 fl (7.4-10.4); MONO # 0.6 K/mm3 (0.1-0.6); MONO % 8.2 % (1.7-9.3); PLATELET COUNT 184 K/mm3 (130-400); RED BLOOD COUNT 5.21 M/mm3 (4.20-5.60); REDCELL DISTRIBUTION WIDTH-CV 12.5 % (11.5-14.5)
[2024-04-25 00:59] LABS: ERYTHROCYTE SEDIMENTATION RATE 2 mm/hr (0-15)
[2024-04-25 01:00] LABS: URINE APPEARANCE CLEAR (CLEAR/HAZY); URINE BLOOD NEGATIVE (NEGATIVE); URINE COLOR YELLOW (YELLOW); URINE GLUCOSE NEGATIVE (NEGATIVE); URINE KETONE TRACE (NEGATIVE); URINE NITRATE NEGATIVE (NEGATIVE); URINE PROTEIN(semi-quant) NEGATIVE (NEGATIVE)
[2024-04-25 01:14] LABS: ALBUMIN 3.7 g/dL (3.5-5.0); BILIRUBIN,TOTAL 0.3 mg/dL (0.2-1.2); C-REACTIVE PROTEIN 0.09 mg/dL (0.00-0.50); CALCIUM 8.9 mg/dL (8.4-10.2); CREATININE, serum 0.91 mg/dL (0.72-1.25); POTASSIUM 3.7 mEq/L (3.5-4.5); TOTAL PROTEIN 6.7 g/dl (6.2-8.1)
[2024-04-25] MEDS ORDERED: VITAMIND3 5000 PO (02:10)
[2024-04-25 02:29] VITALS: BP 111/76; PULSE 68
== END 2024-04-25 02:29 | disposition home or self-care (01) ==
LOC: COL.ER 23:51
PROVIDERS: Emergency Medicine
DX: R53.83 Other fatigue (principal); F17.210 Nicotine dependence, cigarettes, uncomplicated
CPT/HCPCS: J1885; J7030

== ENCOUNTER 2024-06-10 01:46 | Emergency (ER) | payer MEDICARE, MEDICAID ==
[~2024-06-10] VITALS: Ht 182.9 cm; Wt 75.0 kg
[~2024-06-10 01:46] MED LIST changes: +VITAMIND3 5000 PO
[2024-06-10 02:07] VITALS: BP 130/83; TEMP 98
[2024-06-10] MEDS ORDERED: BACTRIM DS 8001 TAB PO (02:39)
[2024-06-10 04:48] VITALS: PULSE 88
== END 2024-06-10 04:48 | disposition home or self-care (01) ==
LOC: COL.ER 01:46
DX: K04.7 Periapical abscess without sinus (principal); K00.7 Teething syndrome; F17.200 Nicotine dependence, unspecified, uncomplicated